=== PATIENT | male | born 1945 | race Caucasian/White ===

== ENCOUNTER 2017-09-07 10:23 | Day surgery (SDC) | payer MEDICARE ==
[2017-08-31 14:53] VITALS: BMI 23.2
[~2017-09-07 10:23] MED LIST: ALPRAZolam 0.25 MG TAB PO PRN; ALPRAZolam 0.5 MG TAB PO PRN; ASPIRIN 325 MG TAB PO STA; ATORVASTATIN 80 MG TAB PO STA; NITROGLYCERIN SL TABS 0.4 MG TAB SUBLINGUAL PRN; SODIUM CHLORIDE 0.9% 1,000 ML in EMPTY BAG 1 BAG IV ONE
[2017-09-07] MEDS ORDERED: HEPARIN SODIUM 1,000 UN/ML (10ML VL) ONE (11:34)
[2017-09-07] MEDS ORDERED: MIDAZOLAM 2 MG/2 ML VIAL ONE (11:34)
[2017-09-07] MEDS ORDERED: LIDOCAINE 2% INJ 20 MG/ML (20 ML MDV) ONE (11:34)
[2017-09-07] MEDS ORDERED: VERAPAMIL 2.5 MG/ML 2 ML AMP ONE (11:34)
[2017-09-07 11:38] VITALS: PULSE 76; TEMP 97.8
[2017-09-07 12:01] LABS: Glucose,Whole Blood 117 mg/dL (75-99)
[2017-09-07] MEDS ORDERED: IV FLUID CONTINUATION 1,000 ML IV ONE (12:14)
[2017-09-07] MEDS ORDERED: MIDAZOLAM 2 MG/2 ML VIAL IV ONE (12:18)
[2017-09-07] MEDS ORDERED: LIDOCAINE 2% INJ 20 MG/ML SQ ONE (12:20)
[2017-09-07] MEDS: VERAPAMIL SYRINGE (5 MG/10 ML) INTRAARTER ONE ×2 (12:21→12:35)
[2017-09-07] MEDS ORDERED: IOPAMIDOL-370 125ML BTL INJ ONE (12:35)
[2017-09-07] MEDS ORDERED: RX INFO: IV CONTRAST WAS GIVEN 1 EACH MISC MISCELLANE PRN (12:54)
[2017-09-07] MEDS ORDERED: SODIUM CHLORIDE 0.9% 1,000 ML IV SCH (13:00)
--- NOTE | 2017-09-07 13:34 | CC ---
CARDIAC CATHETERIZATION REPORT DATE OF SERVICE: 09/07/2017 PERFORMING PHYSICIAN: Phoenix Lowry MD, nremt. PROCEDURE PERFORMED: 1. Selective right and left coronary angiogram. 2. Left heart catheterization. 3. Left ventriculography. INDICATION: This is a pleasant 72-year-old gentleman with a very significant family history of coronary artery disease as well as diabetes, hypertension, and dyslipidemia who underwent recently a stress test and that showed large inferolateral fixed defect with small alessandra-infarct ischemia involving the apex of the left ventricle. Because of that, a heart catheterization was recommended. Please note that the patient was asymptomatic and denies having any chest pain or discomfort but he was feeling tired and fatigued and has low energy. Beside that, he does have poor functional capacity. APPROACH: Right radial artery. COMPLICATION: None. LEVEL OF SEDATION: Moderate with sedation length of 21 minutes. PROCEDURE DESCRIPTION: After obtaining an informed consent, the patient was brought to the cardiac label press operator. The right radial artery was cannulated using micropuncture technique, the micropuncture wire passed easily, then I placed a 6-[place] sheath in the right radial artery. After that I gave the patient 2 mg of verapamil IA and 8000 units of heparin IV. Subsequently I did selective right and left coronary angiogram using JR4 and JL3.5 catheters. After that I did left heart catheterization using 6-[place] pigtail catheter. The procedure was completed without any complication. SELECTIVE CORONARY ANGIOGRAM: 1. The RCA is a small to medium caliber vessel and it is a nondominant vessel. It does have mild disease only. 2. The left main is heavily calcified left main with distal disease appeared to be in the range of 50%. Bifurcates into left circumflex and left anterior descending artery. 3. The left circumflex is a large caliber vessel and it is a dominant vessel. The ostial circ is heavily calcified with a plaque appeared to be in the range of 70% to 80%. The proximal circ gives rise into a medium size first OM branch, which seems to be chronically occluded on long segment. The mid circ after the bifurcation of a small second OM branch is also chronically occluded. It fills by collateral from the left coronary system. The circ distally bifurcates into PDA and PLV branches. The PLV branch appeared to be also occluded distally. 4. The LAD; the proximal LAD is heavily calcified with mild disease only and gives rise into a large diagonal branch which seems to be angiographically normal. The mid LAD has a critical lesion appeared to be in the range of 99%. The LAD reached and wrapped around the apex and gives rise into the left circumflex system through septal automatic vulcanizing operator. HEMODYNAMICS: The left ventricular end-diastolic pressure was about 10 mmHg and no significant gradient was identified across the aortic valve. LEFT VENTRICULOGRAPHY: Left ventriculography was performed in the HARRELL projection and using a power injection. The left ventricular systolic function is mildly impaired with EF around 40% to 45% with inferobasal hypokinesia. CONCLUSION: 1. Dominant left coronary system. 2. Heavily calcified left coronary system. 3. Intermediate to severe disease involving the distal left main coronary artery appeared to be in the range of 50%. 4. 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 5. Critical disease involving the proximal to mid LAD appeared to be in the range of 99%. 6. Normal left ventricular end-diastolic pressure. 7. Mildly impaired left ventricular function with an ejection fraction of 40% to 45%. POSTPROCEDURE MANAGEMENT: I recommended proceeding with coronary artery bypass grafting and I discussed that with the patient. The patient would like to go home today and discussed that with his family before he set up an appointment with cardiothoracic surgeon. He is clinically and hemodynamically stable. I am going to let him go home today and I will discuss the finding as well with his . ASHWINL / CLEMENCIAN: [id number] /
[2017-09-07 16:49] LABS: Glucose,Whole Blood 147 mg/dL (75-99)
[2017-09-07 17:04] VITALS: BP 110/58; RESP 18
== END 2017-09-07 18:05 | disposition home or self-care (01) ==
LOC: CATHCVL 10:23 → 3OBS 12:37 → CATHCVL 12:37
PROVIDERS: ATTEND Internal Medicine Interventional Cardiology
DX: I25.110 Atherosclerotic heart disease of native coronary artery with unstable angina pectoris (principal); I25.84 Coronary atherosclerosis due to calcified coronary lesion; I25.82 Chronic total occlusion of coronary artery; I10 Essential (primary) hypertension; F17.210 Nicotine dependence, cigarettes, uncomplicated; Z82.49 Family history of ischemic heart disease and other diseases of the circulatory system; E78.00 Pure hypercholesterolemia, unspecified; E11.9 Type 2 diabetes mellitus without complications; Z79.4 Long term (current) use of insulin; Z79.82 Long term (current) use of aspirin; Z79.899 Other long term (current) drug therapy
CPT/HCPCS: 93458; C1894; J2001; J2250; J1644; Q9967